=== PATIENT | female | born 1990 | race Two or more races ===

== ENCOUNTER → 2018-12-09 | Day surgery (SDC) | payer OTHER ==
[~2018-12-09] VITALS: Ht 165.1 cm; Wt 85.7 kg
[~2018-12-09] MED LIST: CLONAZEPAM0.5 MG PO; KETO10TA2 PO; PERCOCET 5-3251 EACH PO; PROTONIX20 MG PO; WELLBUTRIN SR200 MG PO; ZOFRAN4 MG PO
== END | disposition home or self-care (01) ==
LOC: EDSTATUS 12-04 09:00 → ADM 12-04 09:00 → CIR.AMB 07:00 → O/R 07:00 → SURH 07:00 → EDSTATUS 09:00 → SURH 09:00 → O/R 10:57 → SURG 10:57 → CIR.AMB 13:00 → SURH 14:45 → O/R 16:15 → SURG 16:15
DX: K80.10 Calculus of gallbladder with chronic cholecystitis without obstruction (principal)